=== PATIENT | male | born 1955 | race Caucasian/White ===

== ENCOUNTER 2020-02-12 15:18 | Emergency (ER) | payer OTHER ==
--- NOTE | 2020-02-12 15:47 | EDM.PDOC ---
ED HPI GENERAL MEDICAL PROBLEM - General Chief Complaint: Trauma Stated Complaint: LT HAND PAIN Time Seen by Provider: 02/12/20 15:38 Source of Information: Reports: Patient History Limitations: Reports: No Limitations - History of Present Illness INITIAL COMMENTS - FREE TEXT/NARRATIVE: Silverio comes into [facility] ED with a painful L hand following a fall 2 days ago. He misstepped landing on the palm, and has experienced residual palmar pain, tenderness, and some restricted movement of the L fingers to flexion and grasping. He has tried no meds. The R hand is asx. He is currently using a modified crutch to assist with ambulation of the R leg recovering from a tib- fib fx last year. - Related Data Allergies Allergy/AdvReac Type Severity Reaction Status Date / Time escitalopram [From Lexapro] Allergy Shortness Verified 02/12/20 15:28 of Breath simvastatin Allergy Dizziness Verified 02/12/20 15:28 Home Meds: Home Meds Albuterol Sulfate [Proair Digihaler] 1 puff INH BID 02/12/20 [History] Aspirin 81 mg PO DAILY 02/12/20 [History] Ezetimibe [Zetia] 10 mg PO DAILY 02/12/20 [History] Melatonin/Pyridoxine HCl (B6) [Melatonin 3 mg Tablet] 1 tab PO BEDTIME 02/12/20 [History] Metoprolol Succinate [Toprol Xl] 100 mg PO DAILY 02/12/20 [History] Mometasone Furoate [Elocon 0.1% Crm] 1 applic TOP DAILY PRN 02/12/20 [History] Multivitamin 1 tab PO DAILY 02/12/20 [History] Rosuvastatin [Crestor] 5 mg PO DAILY 02/12/20 [History] Sertraline [Zoloft] 25 mg PO DAILY 02/12/20 [History] Ubidecarenone [Coenzyme Q10] 100 mg PO DAILY 02/12/20 [History] Zinc 1 tab PO DAILY 02/12/20 [History] amLODIPine [Norvasc] 2.5 mg PO DAILY 02/12/20 [History] Review of Systems - Review of Systems Review Of Systems: Comprehensive ROS is negative, except as noted in HPI. ED EXAM, GENERAL - Physical Exam Exam: See Below Exam Limited By: No Limitations General Appearance: Alert, WD/WN, No Apparent Distress Head: Normocephalic Neck: Normal Inspection Respiratory/Chest: Lungs Clear Cardiovascular: Regular Rate, Rhythm Back Exam: Normal Inspection Extremities: Normal Inspection (L hand: no visible swelling or deformity; limited tenderness of palmar structures proximally; no crepitus or discoloration detected; flexion of all digits is diminished with attempts at active flexion; extendsion is full; CMS intact; Tinels sign neg) Neurological: Alert, Oriented, CN II-XII Intact, Normal Cognition Psychiatric: Normal Affect, Normal Mood Skin Exam: Warm, Dry, Intact, Normal Color, No Rash Lymphatic: No Adenopathy Course - Vital Signs Text/Narrative:: I reviewed x rays of L hand, no fx or deformity seen. Last Recorded V/S: Last Vital Signs Temp 36.7 C 02/12/20 15:45 Pulse 83 02/12/20 15:45 Resp 18 02/12/20 15:45 BP 159/63 H 02/12/20 15:45 Pulse Ox 97 02/12/20 15:45 - Orders/Labs/Meds Orders: Active Orders 24 hr Category Date Time Status Hand Comp Min 3V Lt [CR] Stat Exams 02/12/20 15:38 Taken Departure - Departure Time of Disposition: 16:30 Disposition: Home, Self-Care 01 Condition: Fair Clinical Impression: Contusion of left hand, initial encounter - Discharge Information *PRESCRIPTION DRUG MONITORING PROGRAM REVIEWED*: Not Applicable *COPY OF PRESCRIPTION DRUG MONITORING REPORT IN PATIENT RAISA: Not Applicable Instructions: Hand Contusion, [id number], Contusion, [id number] Referrals: Rabia Cisneros, DIRECTOR BROADCAST [Primary Care Provider] - Forms: ED Department Discharge Care Plan Goals: Practice passive range of motion movements to restore function to hand. If not improved by the end of the week, follow up with your primary doctor. Sepsis Event Note - Focused Exam Vital Signs: Vital Signs Temp Pulse Resp BP Pulse Ox 02/12/20 15:45 36.7 C 83 18 159/63 H 97 Date Exam was Performed: 02/12/20 Time Exam was Performed: 16:38 - Problem List & Annotations (1) Contusion of left hand, initial encounter SNOMED Code(s): 4868326 Code(s): S60.222A - CONTUSION OF LEFT HAND, INITIAL ENCOUNTER Status: Acute Annotation/Comment:: Probable contusion of L hand, no obvious hematoma. I sugested PROM, AROM, NSAIDs, and elevation. - Problem List Review Problem List Initiated/Reviewed/Updated: Yes - My Orders Last 24 Hours: My Active Orders 02/12/20 15:38 Hand Comp Min 3V Lt [CR] Stat - Assessment/Plan Last 24 Hours: My Active Orders 02/12/20 15:38 Hand Comp Min 3V Lt [CR] Stat Plan: Follow up with PCP next week if sxs persist. Prognosis is good.
--- NOTE | 2020-02-14 17:42 | CR ---
INDICATION: Fell onto left hand on Monday, residual pain in palm. LEFT HAND: Three views of the left hand revealed deformity at the ungual tuft of the thumb with hypertrophic change which could represent an osteochondroma. This should be correlated clinically. There are some mild degenerative changes at the 1st metacarpal joint. An acute fracture or dislocation was not identified. There are degenerative changes noted at the digital joints of the 2nd, 3rd, and 4th fingers, especially the DIPJs. Interphalangeal joint degenerative changes are noted at the thumb. IMPRESSION: 1. No acute fracture or dislocation. 2. Osteoarthritis. If symptoms persist - if occult fracture site is suspected clinically, reexamination in 10 to 14 days may be helpful. Nuclear Medicine imaging may also be helpful with three phase technique. [facility]
== END 2020-02-12 16:30 | disposition home or self-care (01) ==
LOC: FB.ED 15:18
DX: S60.222A Contusion of left hand, initial encounter (principal); Z88.8 Allergy status to other drugs, medicaments and biological substances; Z79.82 Long term (current) use of aspirin; Z79.899 Other long term (current) drug therapy; W19.XXXA Unspecified fall, initial encounter
CPT/HCPCS: 73130-LT; 99283-25

== ENCOUNTER 2020-03-04 12:18 | Emergency (ER) | payer OTHER ==
--- NOTE | 2020-03-04 14:07 | EDM.PDOC ---
ED HPI GENERAL MEDICAL PROBLEM - General Chief Complaint: Laceration Stated Complaint: CUT ON LEFT HAND Time Seen by Provider: 03/04/20 12:25 Source of Information: Reports: Patient History Limitations: Reports: No Limitations - History of Present Illness INITIAL COMMENTS - FREE TEXT/NARRATIVE: Patient presented to the ED because of a left hand injury when a piece of aluminum metal he is working on flew over and stabbed him on the left palm sustaining 6 cm laceration. He is able to extent and flex his fingers without any difficulty. LEFT PALM Pain Score (Numeric/FACES): 6 - Related Data Allergies Allergy/AdvReac Type Severity Reaction Status Date / Time escitalopram [From Lexapro] Allergy Shortness Verified 03/04/20 12:48 of Breath simvastatin Allergy Dizziness Verified 03/04/20 12:48 Home Meds: Home Meds Albuterol Sulfate [Proair Digihaler] 1 puff INH BID 02/12/20 [History] Aspirin 81 mg PO DAILY 02/12/20 [History] Ezetimibe [Zetia] 10 mg PO DAILY 02/12/20 [History] Melatonin/Pyridoxine HCl (B6) [Melatonin 3 mg Tablet] 1 tab PO BEDTIME 02/12/20 [History] Metoprolol Succinate [Toprol Xl] 100 mg PO DAILY 02/12/20 [History] Mometasone Furoate [Elocon 0.1% Crm] 1 applic TOP DAILY PRN 02/12/20 [History] Multivitamin 1 tab PO DAILY 02/12/20 [History] Rosuvastatin [Crestor] 5 mg PO DAILY 02/12/20 [History] Sertraline [Zoloft] 25 mg PO DAILY 02/12/20 [History] Ubidecarenone [Coenzyme Q10] 100 mg PO DAILY 02/12/20 [History] Zinc 1 tab PO DAILY 02/12/20 [History] amLODIPine [Norvasc] 2.5 mg PO DAILY 02/12/20 [History] Budesonide/Formoterol Fumarate [Budesonide-Formoterol 160-4.5] 2 puff IH DAILY 03/04/20 [History] Past Medical History HEENT History: Reports: Impaired Vision Cardiovascular History: Reports: CAD, High Cholesterol, Hypertension, Stents Respiratory History: Reports: COPD Musculoskeletal History: Reports: Fracture Psychiatric History: Reports: Anxiety, Depression - Infectious Disease History Infectious Disease History: Reports: Chicken Pox, Measles, Mumps - Past Surgical History GI Surgical History: Reports: Colonoscopy, Polypectomy Musculoskeletal Surgical History: Reports: Other (See Below) Other Musculoskeletal Surgeries/Procedures:: leg fx repair Social & Family History - Family History Family Medical History: Noncontributory - Tobacco Use Smoking Status *Q: Never Smoker - Caffeine Use Caffeine Use: Reports: Coffee, Tea - Recreational Drug Use Recreational Drug Use: No ED ROS GENERAL - Review of Systems Review Of Systems: See Below Constitutional: Reports: No Symptoms HEENT: Reports: No Symptoms Respiratory: Reports: No Symptoms Cardiovascular: Reports: No Symptoms Endocrine: Reports: No Symptoms GI/Abdominal: Reports: No Symptoms : Reports: No Symptoms Musculoskeletal: Reports: No Symptoms Skin: Reports: No Symptoms Neurological: Reports: No Symptoms Psychiatric: Reports: No Symptoms Hematologic/Lymphatic: Reports: No Symptoms Immunologic: Reports: No Symptoms ED EXAM, SKIN/RASH Exam: See Below Exam Limited By: No Limitations General Appearance: Alert, WD/WN, No Apparent Distress Ears: Normal External Exam, Normal Canal, Hearing Grossly Normal, Normal TMs Nose: Normal Inspection, Normal Mucosa, No Blood Throat/Mouth: Normal Inspection, Normal Lips, Normal Teeth, Normal Gums, Normal Oropharynx, Normal Voice, No Airway Compromise Head: Atraumatic, Normocephalic Neck: Normal Inspection, Supple, Non-Tender, Full Range of Motion Respiratory/Chest: No Respiratory Distress, Lungs Clear, Normal Breath Sounds, No Accessory Muscle Use, Chest Non-Tender Cardiovascular: Normal Peripheral Pulses, Regular Rate, Rhythm, No Edema, No Gallop, No JVD, No Murmur, No Rub GI/Abdominal: Normal Bowel Sounds, Soft, Non-Tender, No Organomegaly, No Distention, No Abnormal Bruit, No Mass (Male) Exam: No Hernia, Normal Inspection, Normal Prostate, Circumcised Rectal (Males) Exam: Normal Exam, Normal Rectal Tone, Prostate Normal Back Exam: Normal Inspection, Full Range of Motion, NT Extremities: Normal Inspection, Normal Range of Motion, Non-Tender, No Pedal Edema, Normal Capillary Refill Neurological: Alert, Oriented, CN II-XII Intact, Normal Cognition, Normal Gait, Normal Reflexes, No Motor/Sensory Deficits Psychiatric: Normal Affect, Normal Mood Lymphatic: No Adenopathy ED SKIN PROCEDURES - Laceration/Wound Repair Left Hand Appearance: Superficial, Clean Distal NVT: Neuro & Vascular Intact Anesthetic Type: Local Local Anesthesia - Lidocaine (Xylocaine): 1% Plain Local Anesthetic Volume: 4cc Skin Prep: Providone-Iodine (Betadine), Saline Exploration/Debridement/Repair: Wound Explored Closed with: Sutures Lac/Wound length In cm: 6 Suture Size: 3-0 Suture Type: Nylon Course - Vital Signs Text/Narrative:: UTD with immunization Last Recorded V/S: Last Vital Signs Temp 36.9 C 03/04/20 12:20 Pulse 90 03/04/20 12:20 Resp 18 03/04/20 12:20 BP 135/99 H 03/04/20 12:20 Pulse Ox 97 03/04/20 12:20 Departure - Departure Time of Disposition: 14:20 Disposition: Home, Self-Care 01 Condition: Good Clinical Impression: Laceration - Discharge Information Instructions: Laceration Care, Adult, [id number] Referrals: Rabia Cisneros, SONOGRAPHER [Primary Care Provider] - Forms: ED Department Discharge Additional Instructions: Please read discharge instructions on laceration and wound care No need to apply antibiotic ointment Do not cover your wound when you're inside the house Follow up in 10 days for removal of suture Sepsis Event Note (ED) - Evaluation Sepsis Screening Result: No Definite Risk - Focused Exam Vital Signs: Vital Signs Temp Pulse Resp BP Pulse Ox 03/04/20 12:20 36.9 C 90 18 135/99 H 97
== END 2020-03-04 14:15 | disposition home or self-care (01) ==
LOC: FB.ED 12:18
DX: S61.412A Laceration without foreign body of left hand, initial encounter (principal); I10 Essential (primary) hypertension; I25.10 Atherosclerotic heart disease of native coronary artery without angina pectoris; E78.00 Pure hypercholesterolemia, unspecified; J44.9 Chronic obstructive pulmonary disease, unspecified; F41.9 Anxiety disorder, unspecified; F32.9 Major depressive disorder, single episode, unspecified; Z79.899 Other long term (current) drug therapy; Z79.82 Long term (current) use of aspirin; Z88.8 Allergy status to other drugs, medicaments and biological substances; W26.9XXA Contact with unspecified sharp object(s), initial encounter
CPT/HCPCS: 12002; 99282; J2001